=== PATIENT | male | born 1935 | race Caucasian/White ===

== ENCOUNTER 2018-11-28 09:44 | Inpatient (IN) | payer BC, MEDICARE ==
[~2018-11-28] VITALS: Ht 170.2 cm; Wt 95.3 kg
--- NOTE | 2018-11-28 09:49 | NUR ---
CODE STROKE ACTIVATED.
--- NOTE | 2018-11-28 09:54 | NUR ---
CALLED TELESTROKE HOTLINE. AWAITING CALLBACK FROM DR. ANNE
[2018-11-28 09:57] LABS: BASOPHILS # (AUTO) 0.1 K/uL (0.0-8.0); BASOPHILS % (AUTO) 1.1 % (0.0-2.0); EOSINOPHILS # (AUTO) 0.5 K/uL (0.0-0.7); HEMATOCRIT 47.2 % (36.7-47.1); HEMOGLOBIN 15.7 g/dL (12.5-16.3); LYMPHOCYTES # (AUTO) 1.7 K/uL (20.0-40.0); LYMPHOCYTES % (AUTO) 21.7 % (20.5-51.5); MEAN CORPUSCULAR HEMOGLOBIN 28.3 uug (23.8-33.4); MEAN CORPUSCULAR HGB CONC 33 g/dL (32.5-36.3); MEAN CORPUSCULAR VOLUME 85.3 fL (73.0-96.2); MONOCYTES # (AUTO) 0.4 K/uL (2.0-10.0); MONOCYTES % (AUTO) 5.3 % (0.0-11.0); NEUTROPHILS # (AUTO) 5.1 K/uL (1.8-8.9); NEUTROPHILS % (AUTO) 64.9 % (38.5-71.5); PLATELET COUNT (AUTO) 186 K/uL (152-348); RED BLOOD CELL COUNT(AUTO) 5.53 MIL/uL (4.06-5.63); WHITE BLOOD COUNT (AUTO) 7.9 K/uL (3.6-10.2)
--- NOTE | 2018-11-28 09:59 | NUR ---
CAORLA CLEMENTE SPEAKING W/ DR. ANNE (TELE NEUROLOGIST).
[2018-11-28] MEDS ORDERED: IV NORMAL SALINE 250 ML IV ONE (10:00)
[2018-11-28] MEDS ORDERED: IOHEXOL 350 100 ML INFUS..BTL ONE (10:00)
[2018-11-28] MEDS ORDERED: SWABABLE VALVE TRANSFER SET EA MC ONE (10:00)
[2018-11-28 10:06] LABS: CARBON DIOXIDE 28 mmol/L (21-32); CHLORIDE 104 mmol/L (98-107); CREATININE 1.4 mg/dL (0.6-1.3); GLUCOSE 211 mg/dL (74-106); POTASSIUM 3.3 mmol/L (3.5-5.1); UREA NITROGEN, BLOOD 16 mg/dL (7-18)
[2018-11-28] MEDS ORDERED: IV NORMAL SALINE 1000 ML BAG IV ONE (10:15)
[2018-11-28 10:17] LABS: ALANINE AMINOTRANSFERASE 30 U/L (16-63); ALKALINE PHOSPHATASE 66 U/L (50-136); ASPARTATE AMINOTRANSFERASE 33 U/L (15-37); BILIRUBIN,DIRECT 0.1 mg/dL (0.0-0.2); BILIRUBIN,TOTAL 0.7 mg/dL (0.2-1.0); CHOLESTEROL 211 mg/dL (<200); HDL CHOLESTEROL 23 mg/dL (40-60); TOTAL PROTEIN, SERUM 6.9 g/dL (6.4-8.2); TRIGLYCERIDES 412 MG/DL (30-150)
--- NOTE | 2018-11-28 10:30 | NUR ---
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
[2018-11-28] MEDS ORDERED: ATOR40TA PO (10:52)
[2018-11-28] MEDS ORDERED: FINA5TAB11 PO (10:52)
[2018-11-28] MEDS ORDERED: KRIL1CAP31 PO (10:52)
[2018-11-28] MEDS ORDERED: ACET325T53 PO (10:52)
[2018-11-28] MEDS ORDERED: HYDR25TA4 PO (10:52)
[2018-11-28] MEDS ORDERED: CARV3.122 PO (10:52)
[2018-11-28] MEDS ORDERED: CLOT15CR63 TP (10:52)
[2018-11-28] MEDS ORDERED: LEVO150T8 PO ×2 (10:52)
[2018-11-28] MEDS ORDERED: INSU100V10 SQ (10:52)
[2018-11-28] MEDS ORDERED: INSU200I SQ (10:52)
[2018-11-28] MEDS ORDERED: TIMO5SOL11 EACHEYE (10:52)
[2018-11-28] MEDS ORDERED: ASPI81TA31 PO (10:52)
[2018-11-28] MEDS ORDERED: LISI40TA4 PO (10:52)
[2018-11-28] MEDS ORDERED: LATA2.5D7 EACHEYE (10:52)
[2018-11-28] MEDS ORDERED: HUMA SQ (10:52)
[2018-11-28] MEDS ORDERED: HUMALOG SQ (10:56)
--- NOTE | 2018-11-28 11:06 | NUR ---
PT IS RESTING IN BED COMFORTABLY. CONTINUE TO MONITOR THE PT.
--- NOTE | 2018-11-28 12:28 | NUR ---
REPORT WAS GIVEN TO GLAZING SUPERINTENDENT. PT WAS TRANSFERED TO TELEMETRY ROOM #304.
[2018-11-28] MEDS ORDERED: ACETAMINOPHEN 325 MG TABLET PO PRN ×2 (12:45→15:00)
[2018-11-28] MEDS ORDERED: MAG HYDROX/AL HYDROX/SIMETH 30 ML LIQUID UDC PO PRN (12:45)
[2018-11-28 12:55] VITALS: BP 153/82
--- NOTE | 2018-11-28 14:15 | NUR ---
Pt alert and oriented x 4. Left facial droop noted. UE no drifting noted. Left leg pt unable secondary to h/x of surgical procedure. Right leg weakness noted. Pt SNR 1st degree with st depression. Pt able to talk and make his needs known. skin intact. IV on right hand and right ac intact. Swallow eval done. Stroke packet started and left in room. Adalberto Melendez SON in law and first contact for patient. [phone]. Ordered KCI bed and DVT pump. Pt able to swallow without any coughing noted. Pt request to be in low crowell position. o2 @ 2 liter n/c . Pt States he wants DNR. Pt able to use call light. Discussed and educated pt re: s/s of stroke. Pt verbalized understanding but needs reinforcement. Call light is within reach. Bed alarm for fall precaution implemented.
[2018-11-28] MEDS: HEPARIN SODIUM,PORCINE 5,000 UNITS/ML VIAL SQ SCH ×2 (14:33→21:21)
[2018-11-28] MEDS ORDERED: CLOTRIMAZOLE 1% CREAM 30 GM TUBE TP PRN (15:00)
[2018-11-28 15:10] VITALS: BP 151/79
--- NOTE | 2018-11-28 15:15 | NUR ---
Dr Soria here to see pt and spoke with yasmine marcum: plan for patient.
[2018-11-28] MEDS ORDERED: INSULIN REGULAR, HUMAN 300 UNITS/3 ML VIAL SQ PRN (16:00)
[2018-11-28] MEDS ORDERED: DEXTROSE 50% 50 ML DISP.SYRIN IV PRN (16:00)
[2018-11-28] MEDS ORDERED: BLOOD SUGAR DIAGNOSTIC 1 EACH STRIP VI SCH ×2 (16:30→18:00)
[2018-11-28] MEDS ORDERED: POTASSIUM CHLORIDE 20 MEQ TAB.PRT.SR PO ONE (17:30)
--- NOTE | 2018-11-28 17:30 | NUR ---
Pt states that "he has been having the facial droop since yesterday and didnt think anything off it. " Discussed personal risk for stroke. Educated pt on proper eating habits and low cholesterol and low sodium diet. Pt verbalized understanding but needs reinforcement.
[2018-11-28] MEDS ORDERED: ATORVASTATIN 40 MG TABLET PO SCH (18:00)
[2018-11-28] MEDS: TIMOLOL MALEATE XE 0.5% OPHT 5 ML BOTTLE EACHEYE SCH (18:04)
[2018-11-28] MEDS: CARVEDILOL 3.125 MG TABLET PO SCH (18:04)
[2018-11-28] MEDS: BLOOD SUGAR DIAGNOSTIC 1 EACH STRIP VI SCH ×2 (18:07→20:48)
[2018-11-28] MEDS: INSULIN REGULAR, HUMAN 300 UNIT/3 ML VIAL SQ PRN (18:08)
--- NOTE | 2018-11-28 18:30 | NUR ---
Pt speech much better since admitted. Speech more clear. Call light is within reach.
--- NOTE | 2018-11-28 19:40 | NUR ---
Received pt AxO x4, able to follow simple commands. Discussed and reviewed plan of care with pt, pt verbalizes understanding. Left facial droop noted. Bilateral upper extremities has no drift, right lower extremity presents severe weakness, left lower extremity unable due to secondary h/x of surgical procedure. Pt speech somewhat slurred but able to understand. Pt denies headache, blurred vision, pain or discomfort at this time. O2 sats up to 96% via 2L NC. PIV on right hand and right AC intact and patent. VSS, afebrile. Assessment completed, neuro check and nursing swallow screen done. Aspiration precautions and safety measures initiated. Call light within reach. See nursing interventions for more data. Will continue to monitor pt.
[2018-11-28 20:00] VITALS: BP 182/94
[2018-11-28] MEDS: LATANOPROST OPHT DROP 2.5 ML BOTTLE EACHEYE SCH (21:00)
[2018-11-28] MEDS ORDERED: LATANOPROST OPHT DROP 2.5 ML BOTTLE EACHEYE SCH (21:00)
[2018-11-28] MEDS ORDERED: SIMVASTATIN 40 MG TABLET PO SCH (21:00)
--- NOTE | 2018-11-28 23:35 | NUR ---
MD MEAGHAN on floor. Spoke to MD regarding pt SBP > 160s. made aware and states "as long as SBP is below 170s." Will continue to monitor pt.
[2018-11-29 00:01] VITALS: BP 162/84
[2018-11-29 04:00] VITALS: BP 165/82
--- NOTE | 2018-11-29 05:00 | NUR ---
Pt slept intermittently well in between care. Frequent neuro checks Q4H as ordered during the night. Upper extremities with no drift. Lower extremities with mild weakness. Pt denies headache, numbness, or discomfort at this time. No acute respiratory distress noted. Pt turned and repositioned. Safety measures observed. Call light within reach. See nursing interventions for data. Will endorse accordingly to day shift nurse.
[2018-11-29] MEDS: LEVOTHYROXINE SODIUM 150 MCG TABLET PO SCH (06:05)
[2018-11-29] MEDS: PANTOPRAZOLE SODIUM 40 MG TABLET.DR PO SCH (06:05)
[2018-11-29 06:16] LABS: CARBON DIOXIDE 31 mmol/L (21-32); CHLORIDE 106 mmol/L (98-107); CREATININE 1.4 mg/dL (0.6-1.3); GLUCOSE 164 mg/dL (74-106); POTASSIUM 3.4 mmol/L (3.5-5.1); UREA NITROGEN, BLOOD 14 mg/dL (7-18)
[2018-11-29] MEDS: HEPARIN SODIUM,PORCINE 5,000 UNITS/ML VIAL SQ SCH ×3 (06:17→21:03)
[2018-11-29 06:53] LABS: BASOPHILS # (AUTO) 0.1 K/uL (0.0-8.0); EOSINOPHILS # (AUTO) 0.5 K/uL (0.0-0.7); HEMATOCRIT 44.7 % (36.7-47.1); LYMPHOCYTES # (AUTO) 1.5 K/uL (20.0-40.0); MEAN CORPUSCULAR HEMOGLOBIN 28.6 uug (23.8-33.4); MEAN CORPUSCULAR HGB CONC 34 g/dL (32.5-36.3); MEAN CORPUSCULAR VOLUME 85.3 fL (73.0-96.2); MONOCYTES # (AUTO) 0.5 K/uL (2.0-10.0); MONOCYTES % (AUTO) 7.2 % (0.0-11.0); NEUTROPHILS # (AUTO) 4.2 K/uL (1.8-8.9); NEUTROPHILS % (AUTO) 62.8 % (38.5-71.5); PLATELET COUNT (AUTO) 168 K/uL (152-348); RED BLOOD CELL COUNT(AUTO) 5.25 MIL/uL (4.06-5.63); WHITE BLOOD COUNT (AUTO) 6.7 K/uL (3.6-10.2)
[2018-11-29] MEDS: FINASTERIDE 5 MG TABLET PO SCH (08:24)
[2018-11-29] MEDS: BLOOD SUGAR DIAGNOSTIC 1 EACH STRIP VI SCH ×4 (08:24→20:58)
[2018-11-29] MEDS: DOCUSATE SODIUM 100 MG CAPSULE PO SCH (08:24)
[2018-11-29] MEDS: ASPIRIN EC 81 MG TABLET.DR PO SCH (08:24)
[2018-11-29] MEDS: TIMOLOL MALEATE XE 0.5% OPHT 5 ML BOTTLE EACHEYE SCH ×2 (08:27→17:31)
[2018-11-29] MEDS: INSULIN REGULAR, HUMAN 300 UNIT/3 ML VIAL SQ PRN ×4 (08:37→21:02)
[2018-11-29] MEDS ORDERED: LEVOTHYROXINE SODIUM 150 MCG TABLET PO SCH (09:00)
[2018-11-29] MEDS ORDERED: HYDROCHLOROTHIAZIDE 25 MG TABLET PO SCH (09:00)
[2018-11-29] MEDS ORDERED: Medication Not On Formulary EA (Krill/Om-3/Dha/Epa/Phospho/Ast (Krill Oil 500 mg Softgel PO SCH (09:00)
--- NOTE | 2018-11-29 11:18 | NUR ---
TEXTED DR. SANCHEZ FOR MRI APPROVAL.
[2018-11-29 11:21] LABS: *BILIRUBIN,URIN NEGATIVE (NEGATIVE); *BLOOD, URINE 3+ (NEGATIVE); *CLARITY,URINE CLOUDY (CLEAR); *COLOR,URINE YELLOW (YELLOW); *KETONES,URINE NEGATIVE (NEGATIVE); LEUKOCYTE ESTERASE ,URINE NEGATIVE (NEGATIVE); NITRITE, URINE NEGATIVE (NEGATIVE); PH,URINE 5.5 (5.0-8.0); UGLUCOSE NEGATIVE (NEGATIVE)
[2018-11-29 11:28] LABS: BACTERIA,URINE FEW /HPF (NONE SEEN); RBC,URINE 50-80 /HPF (0-3); SQUAMOUS EPITHELIAL CELL,UR FEW /HPF (NONE SEEN)
[2018-11-29 11:30] VITALS: BP 134/77
[2018-11-29] MEDS: IV NS 1000 ML 1,000 ML IV PRN (11:33)
[2018-11-29] MEDS: POTASSIUM CHLORIDE 50 ML IV SCH ×2 (12:00→12:19)
[2018-11-29] MEDS ORDERED: POTASSIUM CHLORIDE 20 MEQ POWDER PACKET PO ONE (13:45)
[2018-11-29] MEDS: CARVEDILOL 3.125 MG TABLET PO SCH (17:32)
--- NOTE | 2018-11-29 18:43 | NUR ---
Pt received, assessed, AOx2, denies pain or discomfort, no SOB noted with 2L NC. Neuro checks Q4 done, stroke education provided. UA sample collected and sent to lab. Pt seen by PT, OT, and ST including swallow evaluation. Diet changed to puree. New orders received and implemented. 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 and can not bed at the hip nor stand up r/t sx. Both IV in right hand and right AC flushed and patent. Pt returned from MRI at 1700, VSS, BS checked to be 164, 3 units administered per MD orders. No acute distress since return. All safety and comfort measures implemented. Call light and personal items placed within reach. Will continue to monitor and endorse to oncoming power and recovery shift engineer.
--- NOTE | 2018-11-29 20:00 | NUR ---
Received patient laying in bed. HOB at a 15 degrees angle per patient request. Patient A/O 3 with some forgetfulness. No acute distress noted. Denies pain and SOB. On O2 2L NC. TELE SR at 64. Noted left facial drop with slurred speech. Patient able to move both upper extremities. Neuro checks done. Noted left lower extremities weakness. Skin check done, intact with no open wounds. Good urine output. IV on the right wrist and AC, patent and intact. Safety initiated. Call light within reach. Will closely monitor.
[2018-11-29 20:15] VITALS: BP 145/78
[2018-11-29] MEDS: LATANOPROST OPHT DROP 2.5 ML BOTTLE EACHEYE SCH (20:56)
[2018-11-29] MEDS ORDERED: ATORVASTATIN 40 MG TABLET PO SCH (21:00)
[2018-11-30 00:26] VITALS: BP 158/83
[2018-11-30 04:00] VITALS: BP 153/85
[2018-11-30 06:27] LABS: BASOPHILS # (AUTO) 0.1 K/uL (0.0-8.0); BASOPHILS % (AUTO) 0.9 % (0.0-2.0); EOSINOPHILS # (AUTO) 0.4 K/uL (0.0-0.7); EOSINOPHILS % (AUTO) 7.3 % (0.0-7.0); HEMATOCRIT 43.2 % (36.7-47.1); HEMOGLOBIN 14.5 g/dL (12.5-16.3); LYMPHOCYTES # (AUTO) 1.3 K/uL (20.0-40.0); LYMPHOCYTES % (AUTO) 21.1 % (20.5-51.5); MEAN CORPUSCULAR HEMOGLOBIN 28.5 uug (23.8-33.4); MEAN CORPUSCULAR HGB CONC 34 g/dL (32.5-36.3); MONOCYTES # (AUTO) 0.4 K/uL (2.0-10.0); MONOCYTES % (AUTO) 6.7 % (0.0-11.0); NEUTROPHILS # (AUTO) 3.9 K/uL (1.8-8.9); PLATELET COUNT (AUTO) 158 K/uL (152-348); RED BLOOD CELL COUNT(AUTO) 5.08 MIL/uL (4.06-5.63); WHITE BLOOD COUNT (AUTO) 6.1 K/uL (3.6-10.2)
[2018-11-30 06:40] LABS: CARBON DIOXIDE 30 mmol/L (21-32); CHLORIDE 107 mmol/L (98-107); CREATININE 1.3 mg/dL (0.6-1.3); GLUCOSE 181 mg/dL (74-106); MAGNESIUM 1.7 mg/dL (1.8-2.4); PHOSPHOROUS 2.8 mg/dL (2.5-4.9); POTASSIUM 3.6 mmol/L (3.5-5.1); UREA NITROGEN, BLOOD 15 mg/dL (7-18)
[2018-11-30] MEDS: PANTOPRAZOLE SODIUM 40 MG TABLET.DR PO SCH (06:48)
[2018-11-30] MEDS: LEVOTHYROXINE SODIUM 150 MCG TABLET PO SCH (06:48)
[2018-11-30] MEDS: IV NS 1000 ML 1,000 ML IV PRN (06:49)
[2018-11-30] MEDS: HEPARIN SODIUM,PORCINE 5,000 UNITS/ML VIAL SQ SCH ×2 (06:50→14:23)
[2018-11-30] MEDS: BLOOD SUGAR DIAGNOSTIC 1 EACH STRIP VI SCH ×2 (06:54→12:00)
--- NOTE | 2018-11-30 07:39 | NUR ---
No changes t/o shift. Patient slept t/o shift. Vital signs stable. TELE SR but goes lolly @54 when asleep. Remains on O2 2L NC. Denies SOB and Chest Pain. Good urine output. Safety and comfort measures maintained t/o shift. All meds given as ordered. All needs met.
[2018-11-30] MEDS: INSULIN REGULAR, HUMAN 300 UNIT/3 ML VIAL SQ PRN ×2 (08:00→11:59)
--- NOTE | 2018-11-30 08:00 | NUR ---
AWAKE ALERT, VERBALLY RESPONSIVE. NO SS OF PAIN OR DISTRESS. CONTINUE WITH TELE OBSERVATION
[2018-11-30] MEDS: ASPIRIN EC 81 MG TABLET.DR PO SCH (08:53)
[2018-11-30] MEDS: DOCUSATE SODIUM 100 MG CAPSULE PO SCH (08:54)
[2018-11-30] MEDS: TIMOLOL MALEATE XE 0.5% OPHT 5 ML BOTTLE EACHEYE SCH (08:54)
[2018-11-30] MEDS: FINASTERIDE 5 MG TABLET PO SCH (08:54)
[2018-11-30] MEDS ORDERED: MAGNESIUM OXIDE 400 MG TABLET PO ONE (09:15)
[2018-11-30 11:02] VITALS: BP 151/78
--- NOTE | 2018-11-30 12:23 | NUR ---
SEEN BY ZACKARY BUENROSTRO FOR FOLLOW-UP SEE NOTES
[2018-11-30] MEDS ORDERED: VALACYCLOVIR HCL 500 MG TABLET PO SCH (13:15)
[2018-11-30] MEDS ORDERED: predniSONE 20 MG TABLET PO SCH (13:15)
--- NOTE | 2018-11-30 13:21 | NUR ---
SEEN BY NEURO MEAL ROOM HAND AND MEAL ROOM HAND HOSPITALIST SEE NOTES. PLAN DISCHARGE TODAY BACK TO SNF
[2018-11-30] MEDS ORDERED: PRED50TA PO ×2 (13:28→14:18)
[2018-11-30] MEDS ORDERED: PRED20TA PO (13:28)
[2018-11-30] MEDS ORDERED: VALA500T PO ×2 (13:28→13:34)
[2018-11-30 15:17] VITALS: BP 136/78
--- NOTE | 2018-11-30 15:21 | NUR ---
DISCHARGED TO [facility] VIA AMBULANCE ALERT WITH NO SS OF DISTRESS. POST-OP CARE INITIATED. AT BEDSIDE Addendum: 11/30/18 at 1523 by SAMEER ARCHER RN ERROR
[2018-12-01] MEDS ORDERED: PANTOPRAZOLE SODIUM 40 MG TABLET.DR PO SCH (07:00)
== END 2018-11-30 15:30 | disposition home health service (06) | DRG 73 ==
LOC: ER 09:44 → TELE3 12:13 → MEDSURG3 11-30 08:37
PROVIDERS: ADMIT Student in an Organized Health Care Education/Training Program; ATTEND Student in an Organized Health Care Education/Training Program
DX: G51.0 Bell's palsy (principal); R40.2222 Coma scale, best verbal response, incomprehensible words, at arrival to emergency department; R53.2 Functional quadriplegia; R47.01 Aphasia; N17.9 Acute kidney failure, unspecified; D68.59 Other primary thrombophilia; E87.6 Hypokalemia; Z66 Do not resuscitate; R40.2362 Coma scale, best motor response, obeys commands, at arrival to emergency department; R40.2132 Coma scale, eyes open, to sound, at arrival to emergency department; E78.5 Hyperlipidemia, unspecified; H40.9 Unspecified glaucoma; E11.9 Type 2 diabetes mellitus without complications; Z79.4 Long term (current) use of insulin; E03.9 Hypothyroidism, unspecified; N40.0 Benign prostatic hyperplasia without lower urinary tract symptoms; I70.0 Atherosclerosis of aorta; I10 Essential (primary) hypertension; R47.02 Dysphasia; M77.9 Enthesopathy, unspecified; Z86.73 Personal history of transient ischemic attack (TIA), and cerebral infarction without residual deficits; M47.892 Other spondylosis, cervical region
CPT/HCPCS: 36415; 70030-TC; 70450; 70496; 70551; 71045; 83735; 84100; 84443; 85025; 85730; 92526; 92610; 93005; 93307; 93880; 97110; 97165; 97530; 97535; A4663; C1758; G0378; J1644; J1815; J3480; J3590; J7030; J7050; J7512; Q9967

== ENCOUNTER 2020-10-02 12:37 | Emergency (ER) | payer BC ==
[~2020-10-02] VITALS: Ht 170.2 cm; Wt 95.3 kg
[~2020-10-02 12:37] MED LIST: ACET325T53 PO; ASPI81TA31 PO; ATOR40TA PO; CARV3.122 PO; CLOT15CR27 TP; FINA5TAB11 PO; HUMALOG SQ; HYDR25TA4 PO; INSU100V10 SQ; INSU200I SQ; KRIL1CAP31 PO; LATA2.5D15 EACHEYE; LEVO150T8 PO; LISI40TA13 PO; PRED20TA PO; PRED50TA PO; TIMO5SOL11 EACHEYE; VALA500T PO
[2020-10-02] MEDS ORDERED: IV NORMAL SALINE 1000 ML BAG IV ONE (13:00)
--- NOTE | 2020-10-02 13:03 | NUR ---
Receaved pt 85 yras male awake and alert transfer from [facility]ing leaving facillety by elizabeth miller by son in [facility] for evaluation of swallen on left leg for one weak one and open draning wound on lt grown lt leg swallen and tighness tender to touch + and redness Addendum: 10/03/20 at 0928 by YELITZA LATE ENTRY: 10/02/20 NS 3000 ML IV BOLUS GIVEN VIA SALINE LOCK TO LT HAND: START TIME: 1346 END TIME : 3608
--- NOTE | 2020-10-02 13:47 | NUR ---
EKG DONE BLOOD DROW BY LAB TACH AND BLOOD CULTURE X2 BLOOD DROW BY LAB TACH STERTED IVF NS 0.9% INFUSED AND PATENT 31ML/HR
[2020-10-02 13:51] LABS: BASOPHILS # (AUTO) 0.1 K/uL (0.0-8.0); EOSINOPHILS # (AUTO) 0.6 K/uL (0.0-0.7); EOSINOPHILS % (AUTO) 7.9 % (0.0-7.0); HEMATOCRIT 39.9 % (36.7-47.1); HEMOGLOBIN 13.3 g/dL (12.5-16.3); LYMPHOCYTES # (AUTO) 1.7 K/uL (20.0-40.0); LYMPHOCYTES % (AUTO) 22.5 % (20.5-51.5); MEAN CORPUSCULAR HEMOGLOBIN 29.4 uug (23.8-33.4); MEAN CORPUSCULAR HGB CONC 33 g/dL (32.5-36.3); MEAN CORPUSCULAR VOLUME 87.8 fL (73.0-96.2); MONOCYTES # (AUTO) 0.5 K/uL (2.0-10.0); MONOCYTES % (AUTO) 6.9 % (0.0-11.0); NEUTROPHILS # (AUTO) 4.6 K/uL (1.8-8.9); NEUTROPHILS % (AUTO) 61.7 % (38.5-71.5); PLATELET COUNT (AUTO) 145 K/uL (152-348); RED BLOOD CELL COUNT(AUTO) 4.54 MIL/uL (4.06-5.63); WHITE BLOOD COUNT (AUTO) 7.5 K/uL (3.6-10.2)
[2020-10-02 13:57] LABS: CARBON DIOXIDE 30 mmol/L (21-32); CHLORIDE 107 mmol/L (98-107); CREATININE 1.8 mg/dL (0.6-1.3); GLUCOSE 138 mg/dL (74-106); POTASSIUM 3.4 mmol/L (3.5-5.1); UREA NITROGEN, BLOOD 50 mg/dL (7-18)
[2020-10-02 14:09] LABS: ALANINE AMINOTRANSFERASE 16 U/L (16-63); ALKALINE PHOSPHATASE 42 U/L (50-136); ASPARTATE AMINOTRANSFERASE 16 U/L (15-37); BILIRUBIN,DIRECT 0.1 mg/dL (0.0-0.2); BILIRUBIN,TOTAL 0.4 mg/dL (0.2-1.0); TOTAL PROTEIN, SERUM 6.3 g/dL (6.4-8.2)
[2020-10-02] MEDS ORDERED: LINA5TAB PO (14:50)
[2020-10-02] MEDS ORDERED: GLIP5TAB13 PO (14:50)
[2020-10-02] MEDS ORDERED: QUET25TA PO (14:50)
[2020-10-02] MEDS ORDERED: MENT71OI TP (14:50)
[2020-10-02] MEDS ORDERED: CARB1DRO EACHEYE (14:50)
[2020-10-02] MEDS ORDERED: FURO-152 PO (14:50)
[2020-10-02] MEDS ORDERED: INSU100C SQ ×3 (14:50)
[2020-10-02] MEDS ORDERED: GLUC1KIT2 SQ (14:50)
[2020-10-02] MEDS ORDERED: PIOG30TA10 PO (14:50)
[2020-10-02] MEDS ORDERED: SWABABLE VALVE TRANSFER SET EA MC ONE (15:06)
[2020-10-02] MEDS ORDERED: IOHEXOL 300MG/ML 100 ML INFUS..BTL ONE (15:06)
[2020-10-02] MEDS ORDERED: IV NORMAL SALINE 0 ML IV ONE (15:07)
--- NOTE | 2020-10-02 15:44 | NUR ---
to ct scan without iv contrast for abdomin chest and pelcvic
--- NOTE | 2020-10-02 18:23 | NUR ---
Per pt may be discharged back to [facility], called [facility] for transport, eta 60 mins.
[2020-10-02 19:01] LABS: *BILIRUBIN,URIN NEGATIVE (NEGATIVE); *BLOOD, URINE NEGATIVE (NEGATIVE); *CLARITY,URINE CLEAR (CLEAR); *COLOR,URINE YELLOW (YELLOW); *KETONES,URINE NEGATIVE (NEGATIVE); *UROBILINOGEN,URINE 0.2 E.U./dl (NORMAL); LEUKOCYTE ESTERASE ,URINE NEGATIVE (NEGATIVE); NITRITE, URINE NEGATIVE (NEGATIVE); PH,URINE 5.5 (5.0-8.0); UGLUCOSE NEGATIVE (NEGATIVE)
--- NOTE | 2020-10-02 19:15 | NUR ---
HAND OFF TO JENNA MCKEON AND NEDA MCKEON PLAN TO TRANSFER BACK [facility]
[2020-10-02] MEDS ORDERED: NEOMY/BACITRA/POLYMYXIN B OINT UD PACKET TP ONE ×2 (19:39→19:45)
--- NOTE | 2020-10-02 20:08 | NUR ---
[facility] unit [facility] here to transport pt. back to [facility]. Report given to staff. Aftercare instructions provided with pt. and son in law. Vss. Wound care performed prior. Stressed follow up or return to ER for worsening s/s.
[2020-10-02 20:14] VITALS: BP 122/78
== END 2020-10-02 20:15 ==
LOC: ER 12:37
DX: L98.8 Other specified disorders of the skin and subcutaneous tissue (principal); Z98.1 Arthrodesis status; S31.104A Unspecified open wound of abdominal wall, left lower quadrant without penetration into peritoneal cavity, initial encounter; Z87.891 Personal history of nicotine dependence; E11.9 Type 2 diabetes mellitus without complications; Z79.4 Long term (current) use of insulin; E03.9 Hypothyroidism, unspecified; Z79.890 Hormone replacement therapy; Z79.82 Long term (current) use of aspirin; I71.4 Abdominal aortic aneurysm, without rupture; E78.5 Hyperlipidemia, unspecified; I25.10 Atherosclerotic heart disease of native coronary artery without angina pectoris; H40.9 Unspecified glaucoma; R53.2 Functional quadriplegia; I70.90 Unspecified atherosclerosis; D68.59 Other primary thrombophilia; Z86.73 Personal history of transient ischemic attack (TIA), and cerebral infarction without residual deficits; I11.9 Hypertensive heart disease without heart failure; Z20.822 Contact with and (suspected) exposure to COVID-19; I83.892 Varicose veins of left lower extremity with other complications
CPT/HCPCS: 36415; 70030-TC; 70450; 71045; 71250; 83605; 85025; 85730; 86850; 86900; 86901; 87040; 87086; 93005; A4663; J7030; J7050; Q9967